=== PATIENT | male | born 1985 | race African-American/Black ===

== ENCOUNTER → 2018-03-27 | Outpatient (REF) | payer SELFPAY ==
[2018-03-27 12:24] LABS: SEMEN APPEARANCE OPAQUE (OPAQUE); SEMEN VISCOSITY LIQUID (LIQUID); SEMEN VOLUME 4.9 ml (4.0-5.0); WBC CONCENTRATION <=1 M/ml (<=1 M/ml)
[2018-03-27 12:25] LABS: % NORMAL FORMS < 4 % (>=4); IMMOTILITY 76 %; NON PROGRESSIVE MOTILITY (c) 19 %; PROGRESSIVE MOTILITY (a) 5 % (>=32); SPERM CONCENTRATION 6.7 M/ml (>=15.0); SPERM# 33.1 M/Ejac (>=39); TOTAL FUNCTIONAL 0.1 M/Ejac.; TOTAL MOTILITY 24 % (>=40); TOTAL PROGRESSIVE SPERM 1.5 M/Ejac.
== END ==
LOC: M LAB REF 11:51
DX: N46.9 Male infertility, unspecified (principal)

== ENCOUNTER → 2018-05-05 | Outpatient (REF) | payer OTHER ==
[2018-05-05 09:53] LABS: IMMOTILITY 82 %; NON PROGRESSIVE MOTILITY (c) 17 %; PROGRESSIVE MOTILITY (a) 1 % (>=32); SEMEN APPEARANCE YELLOW (OPAQUE); SEMEN VISCOSITY LIQUID (LIQUID); SPERM CONCENTRATION 5.3 M/ml (>=15.0); TOTAL MOTILITY 18 % (>=40); WBC CONCENTRATION >1 M/ml (<=1 M/ml)
[2018-05-05 09:54] LABS: % NORMAL FORMS < 4 % (>=4)
[2018-05-05 09:55] LABS: SPERM ABNORMAL FORMS WBC'S NOTED
== END ==
LOC: M SMT 09:44
DX: N46.9 Male infertility, unspecified (principal)
CPT/HCPCS: 89320

== ENCOUNTER → 2018-05-18 | Outpatient (REF) | payer OTHER ==
[2018-05-18 14:45] LABS: CHLAMYDIA DNA AMPLIFICATION NEGATIVE (NEGATIVE); GC DNA AMPLIFICATION NEGATIVE (NEGATIVE)
== END ==
LOC: M SMT 12:57
DX: N46.9 Male infertility, unspecified (principal)